=== PATIENT | female | born 1995 | race African-American/Black ===

== ENCOUNTER 2016-07-23 13:52 | Emergency (ER) | payer BC, MEDICAID ==
[~2016-07-23] VITALS: Ht 160 cm; Wt 83.0 kg
[~2016-07-23 13:52] MED LIST: FERR325T PO; IBUP-232 PO; MIREIUD I-UTERINE; PREN1CAP33 PO; SENN1TAB PO
[2016-07-23 13:54] VITALS: BP 114/70; PULSE 88; RESP 20; TEMP 98; O2SAT 100
[2016-07-23] MEDS ORDERED: SODIUM CHLOR 0.9% 1000 ML INJ 1,000 ML IV SCH (14:24)
--- NOTE | 2016-07-23 14:26 | PD ---
HPI Chief Complaint: Central Processing Tech Problem/Complaint Time Seen by Provider: 14:26 Travel History International Travel<30 days: No Contact w/Intl Traveler<30days: No Traveled to known affect area: No History of Present Illness HPI 20-year-old female presents to the emergency department for evaluation of vaginal bleeding for 2-1/2 weeks. Patient states that this is the third menstrual cycle since she delivered her baby in February. States that she did have a Mirena IUD placed in April, 3 months ago. States that 2 weeks ago she began bleeding with mild abdominal cramping as with a normal menstrual cycle. States that over the past 2 weeks she's had heavier bleeding and became concerned about becoming anemic. States that today she feels slightly lightheaded and fatigued. States she has a history of iron deficiency anemia and takes iron supplementation. Denies any fever, chills, nausea, vomiting, diarrhea, constipation, burning with urination, painful urination. No other complaints. PFSH Past Medical History Hx Anticoagulant Therapy: No Anemia: Yes Anxiety: Yes Depression: Yes Diminished Hearing: No Gastrointestinal Disorders: No Genitourinary: Yes (RECENT UTI. HX KIDNEY INFECTIONS.) Musculoskeletal: Yes (CHRONIC LOW BACK PAIN) Immunizations Current: Yes ?: Not : 4 Para: 4 Past Surgical History Other Surgery: No Social History Alcohol Use: No Tobacco Use: No Substance Use: No Allergies-Medications (Allergen,Severity, Reaction): Coded Allergies: Bennett (Verified Allergy, Severe, rash, swelling of face, 04/28/16) Reported Meds & Prescriptions Reported Meds & Active Scripts Active Senna Plus 8.6-50 mg (Sennosides-Docusate Sodium) 1 Tab Tab 2 Tab PO Q12H PRN Ibuprofen 600 Mg Tab 600 Mg PO Q6H PRN Ferrous Sulfate 325 Mg Tab 325 Mg PO BID Reported Mirena (Levonorgestrel (Iud)) 20 Mcg/24 Hr Iud 52 Mg I-UTERINE ONCE Vitafol Fe+ 90-1-200 & 50 mg ( Vit W/ Fe Polysacch C) 1 Cap Cap 1 Tab PO DAILY Review of Systems Except as stated in HPI: all other systems reviewed are Neg Physical Exam Narrative GENERAL: Well-nourished and well-developed pleasant female patient in no acute distress who is nontoxic appearing. SKIN: Warm and dry. HEAD: Normocephalic and atraumatic. EYES: No injection, drainage, or hyphema noted. PERRLA. EOMI. ENT: No nasal drainage noted. Oropharynx is clear. NECK: Supple and the trachea is midline. CARDIOVASCULAR: Regular rate and rhythm. RESPIRATORY: Breath sounds are equal bilaterally with no accessory muscle use, wheezing, rhonchi, or crackles. GASTROINTESTINAL: Abdomen is soft, non-tender, and nondistended. GENITOURINARY: Normal external genitalia without lesions or erythema. Vaginal vault with small amount of blood. Cervical os was closed without drainage. IUD string visualized coming from cervical os. No cervical motion tenderness. Uterus nontender and nonenlarged. Bilateral adnexa nontender without masses. MUSCULOSKELETAL: No obvious deformities, swelling, cyanosis, or ecchymosis is present throughout the upper and lower extremities. Patient has full range of motion without any signs of neurovascular compromise. NEUROLOGICAL: Awake, alert, and oriented. Normal speech and gait. Cranial nerves are grossly intact. Data Data Last Documented VS Vital Signs Date Time Temp Pulse Resp B/P Pulse Ox O2 Delivery O2 Flow Rate FiO2 07/23/16 13:54 98.0 88 20 114/70 100 Room Air Orders Complete Blood Count With Diff (07/23/16 14:24) Basic Metabolic Panel (Bmp) (07/23/16 14:24) Type And Screen (07/23/16 14:24) Iv Access Insert/Monitor (07/23/16 14:24) Ecg Monitoring (07/23/16 14:24) Sodium Chloride 0.9% Flush (Ns Flush) (07/23/16 14:30) Sodium Chlor 0.9% 1000 Ml Inj (Ns 1000 M (07/23/16 14:24) Ed Urine Pregnancytest Poc (07/23/16 14:27) Labs Laboratory Tests Test 07/23/16 14:35 White Blood Count 6.6 TH/MM3 Red Blood Count 4.18 MIL/MM3 Hemoglobin 11.7 GM/DL Hematocrit 35.7 % Mean Corpuscular Volume 85.5 FL Mean Corpuscular Hemoglobin 28.1 PG Mean Corpuscular Hemoglobin 32.9 % Concent Red Cell Distribution Width 15.0 % Platelet Count 238 TH/MM3 Mean Platelet Volume 9.2 FL Neutrophils (%) (Auto) 62.4 % Lymphocytes (%) (Auto) 27.3 % Monocytes (%) (Auto) 7.2 % Eosinophils (%) (Auto) 2.4 % Basophils (%) (Auto) 0.7 % Neutrophils # (Auto) 4.1 TH/MM3 Lymphocytes # (Auto) 1.8 TH/MM3 Monocytes # (Auto) 0.5 TH/MM3 Eosinophils # (Auto) 0.2 TH/MM3 Basophils # (Auto) 0.0 TH/MM3 CBC Comment DIFF FINAL Differential Comment Sodium Level 140 MEQ/L Potassium Level 3.6 MEQ/L Chloride Level 105 MEQ/L Carbon Dioxide Level 27.2 MEQ/L Anion Gap 8 MEQ/L Blood Urea Nitrogen 14 MG/DL Creatinine 0.75 MG/DL Estimat Glomerular Filtration 117 ML/MIN Rate Random Glucose 87 MG/DL Calcium Level 8.7 MG/DL Blood Type B POSITIVE Antibody Screen NEGATIVE MDM Medical Decision Making Medical Screen Exam Complete: Yes Emergency Medical Condition: Yes Differential Diagnosis Dysfunctional uterine bleeding versus IUD adverse effect versus anemia Narrative Course 20-year-old female presents to the emergency department for evaluation of vaginal bleeding for 2-1/2 weeks. Patient is afebrile, vital signs are stable. She has an IUD in place, I was able to visualize strings on pelvic examination and therefore confirm that it is in correct position. Otherwise pelvic examination reveals only a small amount of blood and is unremarkable. We 'll do labs to rule out anemia. CBC is unremarkable. BMP is unremarkable. Patient has remained stable and without complaint while here in the emergency department. I discussed with her that the abnormal bleeding may be an adverse effect from her IUD. She is instructed to follow-up with her PCP or podiatry professor. Patient verbalizes understanding and agreement with treatment plan. I discussed the case with my attending physician Dr. Paulson who is aware of the patients history, physical examination findings, and treatment plan. Diagnosis Primary Impression: Abnormal uterine bleeding Referrals: Cloud Operations Engineer Patient Instructions: Dysfunctional Uterine Bleeding (ED), General Instructions Additional Instructions: Follow-up with your Primary Care Physician or Cloud Operations Engineer. Return to the ED for any acute worsening of symptoms. Med/Other Pt SpecificInfo: No Change to Meds Disposition: 01 DISCHARGE HOME Condition: Stable Jenna Boswell Jul 23, 2016 14:26
[2016-07-23] MEDS ORDERED: SODIUM CHLORIDE 0.9% FLUSH 5 ML FLUSH IVF PRN (14:30)
[2016-07-23 14:56] LABS: AUTOMATED NEUTROPHIL # 4.1 TH/MM3 (1.8-7.7); BASOPHIL % 0.7 % (0.0-2.0); EOSINOPHIL # 0.2 TH/MM3 (0-0.4); EOSINOPHIL % 2.4 % (0.0-4.0); HEMATOCRIT 35.7 % (35.0-46.0); HEMO FLAGS DIFF FINAL; LYMPH % 27.3 % (9.0-44.0); LYMPHOCYTE # 1.8 TH/MM3 (1.0-4.8); MEAN CELL VOLUME 85.5 FL (80.0-100.0); MEAN CORPUSCULAR HEMOGLOBIN 28.1 PG (27.0-34.0); MEAN CORPUSCULAR HGB CONC 32.9 % (32.0-36.0); MONO % 7.2 % (0.0-8.0); NEUT % 62.4 % (16.0-70.0); PLATELET COUNT 238 TH/MM3 (150-450); RED BLOOD COUNT 4.18 MIL/MM3 (4.00-5.30); WHITE BLOOD COUNT 6.6 TH/MM3 (4.0-11.0)
[2016-07-23 15:17] LABS: BICARBONATE 27.2 MEQ/L (21.0-32.0); POTASSIUM 3.6 MEQ/L (3.5-5.1)
== END 2016-07-23 16:59 | disposition home or self-care (01) ==
LOC: NEPC 13:52
DX: N93.9 Abnormal uterine and vaginal bleeding, unspecified (principal); D50.9 Iron deficiency anemia, unspecified; Z87.440 Personal history of urinary (tract) infections
CPT/HCPCS: 80048; 84703; 85025; 86850; 86900; 86901; 96360; 99283; J7030

== ENCOUNTER 2016-12-29 08:45 | Emergency (ER) | payer BC ==
[~2016-12-29] VITALS: Ht 160 cm; Wt 84.0 kg
[2016-12-29 08:46] VITALS: BP 128/61; PULSE 85; RESP 18; TEMP 98.5; O2SAT 100
[2016-12-29] MEDS ORDERED: IBUPROFEN 800 MG TAB PO ONE (09:15)
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
--- NOTE | 2016-12-29 09:35 | RADRPT ---
EXAM DATE/TIME: 12/29/2016 09:25 [facility] COMPARISON: No previous studies available for comparison. INDICATIONS : Right ankle pain, fall. MEDICAL HISTORY : None. SURGICAL HISTORY : None. ENCOUNTER: Initial ACUITY: 2 days PAIN SCORE: 8/10 LOCATION: Right lateral ankle FINDINGS: Three view exam was performed of the right ankle. The bony structures are in normal alignment. No e vidence of fracture. Mild soft tissue swelling about the lateral malleolus. The ankle mortise is int act. No radiopaque foreign bodies are seen. Bony mineralization is normal. CONCLUSION: Mild soft tissue swelling. No fracture. Diaz Vaughn MD on December 29, 2016 at 9:32 Board Certified Radiologist. This report was verified electronically.
[2016-12-29] MEDS ORDERED: IBUP800T23 PO (09:39)
== END 2016-12-29 09:45 | disposition home or self-care (01) ==
LOC: NEPK 08:45
DX: S99.911A Unspecified injury of right ankle, initial encounter (principal); W50.0XXA Accidental hit or strike by another person, initial encounter; Y93.67 Activity, basketball
CPT/HCPCS: 73610; 99283; E0113; L1906

== ENCOUNTER 2017-09-02 14:00 | Emergency (ER) | payer BC, MEDICAID, OTHER ==
[~2017-09-02 14:00] MED LIST changes: -FERR325T PO; -IBUP-232 PO; +IBUP1TAB7 PO; +PHEN37.54 PO; -PREN1CAP33 PO; -SENN1TAB PO
[2017-09-02 14:17] VITALS: BP 129/91; PULSE 133; RESP 20; TEMP 99.3; O2SAT 100
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
[2017-09-02] MEDS ORDERED: oxyCODONE/ACETAMINOPHEN 5 MG/325 MG TAB PO ONE (16:00)
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
[2017-09-02] MEDS ORDERED: IBUPROFEN 800 MG TAB PO ONE (17:00)
[2017-09-02] MEDS ORDERED: IBUP1TAB7 PO (17:02)
== END 2017-09-02 17:21 | disposition home or self-care (01) ==
LOC: NEPD 14:00
DX: S00.83XA Contusion of other part of head, initial encounter (principal); H92.02 Otalgia, left ear; R51 Headache; D64.9 Anemia, unspecified; F41.9 Anxiety disorder, unspecified; I10 Essential (primary) hypertension; F32.9 Major depressive disorder, single episode, unspecified; Y04.2XXA Assault by strike against or bumped into by another person, initial encounter; Z79.899 Other long term (current) drug therapy
CPT/HCPCS: 70450; 70486